=== PATIENT | female | born 1965 | race Caucasian/White ===

== ENCOUNTER → 2018-01-30 | Outpatient (CLI) | payer OTHER ==
[2013-09-03 16:51] VITALS: BMI 36.0
[~2018-01-30] MED LIST: BUS5 PO; FERR-53 PO; HYDR-317 PO; IBUP800T37 PO; MEDR10TA57 PO; METF-452 PO; MULT1TAB64 PO; OLME1TAB57 PO
== END ==
LOC: US 00:36
PROVIDERS: ATTEND Physician Assistant
DX: R94.31 Abnormal electrocardiogram [ECG] [EKG] (principal); E11.9 Type 2 diabetes mellitus without complications; I10 Essential (primary) hypertension
CPT/HCPCS: 93306